=== PATIENT | female | born 1995 | race Caucasian/White ===

== ENCOUNTER 2022-07-15 10:20 | Emergency (ER) | payer OTHER ==
[~2022-07-15] VITALS: Ht 167.6 cm; Wt 61.4 kg
[2022-07-15 10:43] VITALS: BP 135/85
== END 2022-07-15 11:54 | disposition home or self-care (01) ==
LOC: ER 10:21
DX: M67.441 Ganglion, right hand (principal); M79.641 Pain in right hand; Z88.0 Allergy status to penicillin
CPT/HCPCS: 29125; 99284